=== PATIENT | male | born 1985 | race Caucasian/White ===

== ENCOUNTER → 2020-05-24 | Outpatient (CLI) | payer OTHER ==
--- NOTE | 2020-05-24 18:59 | Diagnostic Imaging Report ---
EXAMINATION: Cervical spine at 3:35 pm INDICATION: Neck pain AP, lateral and odontoid views were obtained. There are no prior studies available for comparison. The lateral view shows the vertebral body heights and alignment to be generally within normal limits. The intervertebral disc spaces are fairly well-maintained. There is no fracture or acute bony abnormality appreciated. There is no sign of retropharyngeal edema. The lung apices are clear. IMPRESSION: There is no evidence for an acute bony abnormality. Dictated by: Dictated on workstation # [id number]
--- NOTE | 2020-05-24 19:07 | Diagnostic Imaging Report ---
PROCEDURE: MR imaging cervical spine without contrast. TECHNIQUE: Multiplanar, multisequence MR imaging of the cervical spine was performed without contrast. INDICATION: Chronic neck pain and bilateral hand tingling. COMPARISON: There are no prior MRI examinations available for comparison. The study is less than optimal due to motion artifact. FINDINGS: The T2 reconstructed parasagittal images show vertebral body heights and alignment to be generally within normal limits, however there is desiccation of the discs at every level. There are slight disc bulge centrally at C3-C4, C4-C5 and C5-C6. There is also mild neuroforaminal narrowing on the right at each of these levels. There is no high-grade stenosis identified, however there does not appear to be any impingement of the exiting nerve roots either. The remainder of the cervical spine is unremarkable for spinal stenosis or nerve root encroachment. There is no abnormal signal arising from the cord or vertebral bodies to indicate an acute abnormality. There is no paraspinal mass noted. The expected carotid vertebral flow voids are evident bilaterally. IMPRESSION: 1. 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 There is no high-grade central stenosis or significant neuroforaminal narrowing identified. 2. There is no sign of an acute bony abnormality or of a cord lesion. Dictated by: Dictated on workstation # [id number]
== END ==
LOC: RAD 15:30
PROVIDERS: ATTEND Nurse Practitioner Family
DX: M50.123 Cervical disc disorder at C6-C7 level with radiculopathy (principal)
CPT/HCPCS: 72040; 72141